=== PATIENT | female | born 1995 | race Caucasian/White ===

== ENCOUNTER 2024-08-10 11:02 | Outpatient (AMB) | payer OTHER, SELFPAY ==
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
[2024-08-10 11:21] VITALS: BP 98/68; PULSE 92; RESP 14; TEMP 37.1; O2SAT 98; BMI 29.5
== END 2024-08-10 12:24 | disposition home or self-care (01) ==
PROVIDERS: Visit Provider Physician Assistant
DX: M13.0 Polyarthritis, unspecified (principal); K58.2 Mixed irritable bowel syndrome; F33.42 Major depressive disorder, recurrent, in full remission; K92.1 Melena; K21.00 Gastro-esophageal reflux disease with esophagitis, without bleeding; M72.2 Plantar fascial fibromatosis; T78.1XXA Other adverse food reactions, not elsewhere classified, initial encounter; R06.81 Apnea, not elsewhere classified; J45.20 Mild intermittent asthma, uncomplicated; J06.9 Acute upper respiratory infection, unspecified; F41.1 Generalized anxiety disorder

== ENCOUNTER → 2024-08-10 11:02 | Outpatient (BNVA) | payer OTHER, SELFPAY | PROVIDERS: Visit Provider Physician Assistant | DX: M13.0 Polyarthritis, unspecified (principal); K58.2 Mixed irritable bowel syndrome; K92.1 Melena; K21.00 Gastro-esophageal reflux disease with esophagitis, without bleeding; M72.2 Plantar fascial fibromatosis; R06.81 Apnea, not elsewhere classified; J45.20 Mild intermittent asthma, uncomplicated; J06.9 Acute upper respiratory infection, unspecified; F41.1 Generalized anxiety disorder; F33.42 Major depressive disorder, recurrent, in full remission | CPT/HCPCS: 96127; 99202 ==

== ENCOUNTER 2024-08-10 12:39 | Outpatient (REF) | payer OTHER, SELFPAY ==
[2024-08-10 14:22] LABS: MANUAL DIFF FLAG NO
[2024-08-10 14:24] LABS: Appearance Urine Cloudy; Color Urine Yellow; Glucose Urine UA Negative (Negative); Leukocyte Esterase Urine Trace (Negative); Nitrite Urine Negative (Negative); Specific Gravity - Urine 1.025 (1.005-1.025); UMIC TRIGGER UACC YES; Urine Blood Negative (Negative); Urine Ketones Trace mg/dL (Negative); Urine Protein Negative (Neg-Trace)
[2024-08-10 14:27] LABS: Basophils Absolute Auto 0.1 X10*3/uL (0.0-0.2); Basophils Percent Auto 0.7 % (0-2); Eosinophils Absolute Auto 0.1 X10*3/uL (0.0-0.4); Eosinophils Percent Auto 0.8 % (0-4); Hematocrit 40.5 % (37.0-47.0); Hemoglobin 13.1 g/dl (12.0-16.0); Imm Gran Abs Auto 0.06 X10*3/uL (0.00-0.03); Imm Gran Pct Auto 0.6 % (0.0-0.4); Lymphocytes Absolute Auto 1.8 X10*3/uL (1.2-4.9); Mean Corpuscular HGB Conc 32.3 g/dl (31.0-35.0); Mean Corpuscular Hemoglobin 27.5 pg (27.0-33.0); Mean Corpuscular Volume 84.9 fL (80.0-98.0); Mean Platelet Volume 10.1 fL (9.4-12.3); Monocytes Absolute Auto 0.7 X10*3/uL (0.1-1.2); Monocytes Percent Auto 6.7 % (2-11); Neutrophils Percent Auto 74.2 % (45-73); Platelet Count 271 X10*3/uL (160-400); Red Blood Count 4.77 X10*6/uL (4.20-5.50); Red Cell Distribution Width 13.1 % (11.0-16.0); White Blood Count 10.7 X10*3/uL (4.8-10.8)
[2024-08-10 14:42] LABS: Bacteria Urine 3+ (None Seen); Calcium Oxalate Crystals Urine Present; Hyaline Casts Urine 0-2 /LPF (0-2); RBC Urine 0-2 /HPF (0-2); WBC Urine 0-5 /HPF (0-5)
[2024-08-10 14:49] LABS: Alanine Aminotransferase 11 U/L (0-31); Albumin Level 4.6 g/dL (3.5-5.0); Alkaline Phosphatase 77 U/L (39-117); Anion Gap 11 (12-20); Aspartate Amino Transferase 16 U/L (5-31); Bilirubin Total 0.4 mg/dL (0.0-1.0); Blood Urea Nitrogen 7 mg/dL (9-16); C Reactive Protein 3.06 mg/dL (< or = 0.50); Calcium 9.8 mg/dL (8.4-10.2); Carbon Dioxide 26 mmol/L (22-29); Chloride 107 mmol/L (96-108); Estimated Glomerular Filt Rate > 60; Glucose Random 94 mg/dL (60-115); Iron 21 mcg/dL (30-160); Magnesium 2.1 mg/dL (1.6-2.6); Percent Iron Saturation 7 % (15-50); Potassium 4.1 mmol/L (3.3-5.1); Sodium 140 mmol/L (135-145); Total Iron Binding Capacity 293 mcg/dL (228-428); Total Protein 7.4 g/dL (6.5-8.0); Unsaturated Iron Binding 272 ug/dL
[2024-08-10 15:02] LABS: Ferritin 38 ng/mL (10-122)
[2024-08-10 15:15] LABS: Erythrocyte Sedimentation Rate 10 MM/HR (0-20)
[2024-08-10 18:19] LABS: Rheumatoid Factor < 13.0 IU/mL (<15.0)
[2024-08-10 18:39] LABS: Vitamin B12 551 pg/mL (200-900)
[2024-08-11 09:04] LABS: Lyme Abs Screen <0.90 index
[2024-08-14 12:58] LABS: VITAMIN D (1,25 OH) D3 75 pg/mL; Vit D (1,25-Dihydroxy) Total 75 pg/mL (18-72); Vitamin D (1,25 OH) D2 <8 pg/mL
[2024-08-15 11:14] LABS: Anti Nuclear Antibody Screen POSITIVE (NEGATIVE); Anti Nuclear Antibody Titer 1:40 titer
== END 2024-08-10 12:40 | disposition home or self-care (01) ==
LOC: HO.WFDLDS 12:39
PROVIDERS: Visit Provider Physician Assistant
DX: M13.0 Polyarthritis, unspecified (principal); K58.2 Mixed irritable bowel syndrome; K92.1 Melena; K21.00 Gastro-esophageal reflux disease with esophagitis, without bleeding; R06.81 Apnea, not elsewhere classified
CPT/HCPCS: 36415; 80053; 81001; 82607; 82652; 82728; 83540; 83735; 85025; 85652; 86038; 86039; 86140; 86431; 86617; 86618

== ENCOUNTER 2024-09-14 11:29 | Outpatient (AMB) | payer OTHER, SELFPAY ==
--- NOTE | 2024-09-14 11:39 | MHC.PC.OV ---
Vital Signs 09/14/24 11:42 Height 5 ft 8.23 in Weight 193 lb 4 oz BMI 29.2 BP 96/54 L Blood Pressure Location Lt brachial Pulse 90 Pulse Source Pulse Oximeter Pulse Oximetry (%) 98 Oxygen Delivery Method Room Air Intake Visit Reasons: 30 min fu Intake Note: Follow up. Never received the Macrobid or inhaler from the pharmacy Nurse Practitioner Home Assessments Required: No Allergies latex Allergy (Unknown, Verified 09/14/24 11:40) Unknown Medication List - Last Reconciled 09/14/24 by Katelyn Philip PA-C aripiprazole 2 mg PO DAILY escitalopram oxalate 10 mg PO DAILY ondansetron HCl 4 mg PO Q8H PRN Tobacco use date assessed: 08/10/24 Dental Screening Dental Screen Date: 08/10/24 HPI 30 min fu HPI Details Patient is a 29-year-old female who presents today for a follow up. SHe is relatively new here. She has a hx of gerd, gastroperisis, ibs, peptic ulcers, food allergies, anxiety, deperession, ocd, ptsd, borderline personality disorder. -she does worried today that she could have a UTI. She has some increased frequency and urgency and dysuria. No fevers or chills. No increased abdominal pain or flank pain. Has chronic pain at baseline but states that this is her baseline. She does have nausea baseline but no vomiting. Feels unchanged. General: Has sleep study booked. She feels good about this. GI: Has a hx of gastroperisis, gerd and IBS and worries that she has crohns. She had upper endoscopy to dx the ulcers and gerd in 2017 but, never a colonoscopy. She has gastric emptying study in 2017. She did not get the GI labs completed yet. She states that she wants testing for celiac disease. She has many food sensitivities. She states anything spicy she gets bloated, n/v. She is also triggered by garlic and onions. She has tried the FODMAP diet and it does not seem to fully relieve it. She thinks she needs to see an freezing room worker. She takes pantoprazole intermittently but no improvement. She sometimes gets blood in the stool and states it lasted for one whole year last year but nothing the last couple months. No mucous in the stools. She states she gets constipation/diarrhea alternating. No weight loss. No dysphagia. No fever or chills. No rashes. No fam hx of colon ca, stomach ca, or IBD. No travel. No antibiotics in the last couple years. No abdominal surgeries. -she was referred to Allergy and immunology for food sensitivities. She was also referred to GI but has not heard yet. Phone number was provided to both of these places today. Rheum: Recent labs did show elevated CRP and positive SERGIO. Has an appointment on 10/05 with Rheumatology. She feels excited about this. She also has an appointment with podiatry for her pain in her feet. She states that she has joint pains all of the time. She states her jaw, back, neck, shoulders, knees and feet bother her daily. She states that her back, neck and shoulders bother her since high school. The jaw is more recent. Seeing a dentist for TMJ. The feet started bothering her on and off for the last 1-2 years. She states that she gets stabbing pain in the arches of her feet. She has been following with a chiropractor and PT. She does not get swelling in the joints. She sometimes has muscular pain as well. No real weakness. At times she will get tingling in her right forearm. She wonders if she has fibromyalgia from her breast implants. Psych: She is on lexapro and abilify. She follows with a psychiatrist in [place]. She is going to testing for adhd and autism. She is following with her school therapist. She has been hospitalized for her mental 2 x for SI. She states her depression is currently very well managed. Generation Manager: UTD, has IUD. Scheduled to see warehouse distribution manager in October. 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 She is currently in school at [employer] for [employer]. 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[employer] Current occupational exposures/hazards: No Cognitive needs: No Hearing needs: No Vision needs: No Questionnaire Thrive Questionnaire Date Thrive assessed: 08/10/24 I am a: Patient What is your living situation today?: I have a place to live, but I am worried about losing it in the future Within the past 12 months, did the food you bought not last and you didn't have the money to get more?: Sometimes True Within the past 12 months, did you worry whether your food would run out before you got money to buy more?: Sometimes True Do you have trouble paying for medicines?: No Do you have trouble getting transportation to medical appointments?: Yes Do you have trouble paying your heating and electricity bill?: No Do you have trouble taking care of your child, family member or friend?: No Do you have trouble with day-to-day activities such as bathing, preparing meals, shopping, managing finances, etc.?: No Are you currently unemployed and looking for a job?: No Are you interested in more education?: No Please select the resources that you would like help with: Transportation THRIVE Score: 4 SHANNAN-7 AMB Questionnaire SHANNAN-7 Date SHANNAN - 7 assessed: 08/10/24 Becoming easily annoyed or irritable: 1 = Several days Source: Developed by Drs. Ochoa Jean, Franchesca Titus, Bryan Whitt and colleagues, with an educational sushil from [employer]. Physical exam (Primary Care) Vital Signs: Last Vital Signs Pulse 90 09/14/24 11:42 BP 96/54 L 09/14/24 11:42 Pulse Ox 98 09/14/24 11:42 Oxygen Delivery Method Room Air 09/14/24 11:42 BMI result Body Mass Index 29.2 Tobacco/Smoking Status: Tobacco use Status Tobacco use date assessed 08/10/24 09/14/24 11:48 Patient Tobacco Use Status Never used Tobacco 09/14/24 11:48 e-Cigarette/Vaping Use Never Used 09/14/24 11:48 Thrive Assessment: Date of Thrive Assessment Date Thrive assessed 08/10/24 09/14/24 11:48 Const Orientation/consciousness: patient oriented x3 HENMT Ears: hearing grossly normal bilaterally Neck Thyroid: Thyroid normal Lymphatic: no lymphadenopathy noted Resp Auscultation: clear to auscultation bilaterally Cardio Rate: regular rate Rhythm: regular rhythm Heart sounds: S1 normal heart sound present and S2 normal heart sound present GI Inspection: Yes normal to inspection Palpation (GI): Soft to palpation and Other GI palpation findings present (nontender, no cva tenderness) Auscultation: normoactive bowel sounds Rectal Exam - Female: deferred Skin General skin exam: no rashes or lesions noted Neuro General: patient oriented x3, gait normal and no focal motor deficits Results Reviewed Results Reviewed: Laboratory Tests 08/10/24 08/10/24 08/10/24 12:14 12:42 12:43 WBC 10.7 RBC 4.77 Hgb 13.1 Hct 40.5 Plt Count 271 ESR 10 Sodium 140 Potassium 4.1 Chloride 107 Carbon Dioxide 26 Anion Gap 11 L BUN 7 L Creatinine 0.79 Estimated GFR > 60 Random Glucose 94 Calcium 9.8 Magnesium 2.1 Iron 21 L TIBC 293 % Saturation 7 L Unsat Iron Binding 272 Ferritin 38 Total Bilirubin 0.4 AST 16 ALT 11 Alkaline Phosphatase 77 C-Reactive Protein 3.06 H Total Protein 7.4 Albumin 4.6 Vitamin B12 551 1,25 Dihydroxy Vit D 75 H 1,25 Dihydroxy Vit D2 <8 Rheumatoid Factor < 13.0 SERGIO Screen POSITIVE A SERGIO Titer 1:40 H SERGIO Pattern A Lyme Screen IgG & IgM <0.90 Coding Level of Care Code Est Pt Level 4 (41912) Complex EM visit Add On G2211 Diagnoses Elevated C-reactive protein R79.82 Food sensitivity with gastrointestinal symptoms T78.1XXA Mild intermittent asthma without complication J45.20 Asthma complication type: uncomplicated UTI (urinary tract infection) N39.0 Assessment & Plan Assessment & Plan (1) Elevated C-reactive protein: Code(s): R79.82 - Elevated C-reactive protein (CRP) Category: Medical Plan: Seeing Rheumatology September. (2) Food sensitivity with gastrointestinal symptoms: Code(s): T78.1XXA - Other adverse food reactions, not elsewhere classified, initial encounter Category: Medical Plan: We did discuss an elimination diet. Advised to complete labs that have been ordered. Phone number provided to GI and Allergy and immunology. (3) Asthma, mild intermittent: Code(s): J45.20 - Mild intermittent asthma, uncomplicated Category: Medical Qualifiers: Asthma complication type: uncomplicated Qualified Code(s): J45.20 - Mild intermittent asthma, uncomplicated Plan: Currently well-controlled. We will refill albuterol as she does not have anymore at home. (4) UTI (urinary tract infection): Code(s): N39.0 - Urinary tract infection, site not specified Plan: UA and culture ordered today. She we will start Macrobid and we will adjust if we have to. Medications: New nitrofurantoin monohyd/m-cryst 100 mg (Macrobid) must administer with a meal/food 100 mg PO Q12H 7 days 14 caps 0RF albuterol sulfate 90 mcg/actuation 2 puffs inhalation Q6H PRN 8.5 grams 3RF shortness of breath or wheezing Refilled ondansetron HCl 4 mg PO Q8H PRN 30 tabs 3RF nausea and vomiting
[2024-09-14 11:42] VITALS: BP 96/54; PULSE 90; O2SAT 98; BMI 29.2
== END 2024-09-14 12:12 | disposition home or self-care (01) ==
LOC: HO.HMCFM 11:29
PROVIDERS: PCP Physician Assistant; Visit Provider Physician Assistant
DX: R79.82 Elevated C-reactive protein (CRP) (principal); T78.1XXA Other adverse food reactions, not elsewhere classified, initial encounter; J45.20 Mild intermittent asthma, uncomplicated; N39.0 Urinary tract infection, site not specified

== ENCOUNTER → 2024-09-14 11:29 | Outpatient (BNVA) | payer OTHER, SELFPAY | PROVIDERS: PCP Physician Assistant; Visit Provider Physician Assistant | DX: R79.82 Elevated C-reactive protein (CRP) (principal); J45.20 Mild intermittent asthma, uncomplicated; N39.0 Urinary tract infection, site not specified; T78.1XXA Other adverse food reactions, not elsewhere classified, initial encounter | CPT/HCPCS: 99212 ==

== ENCOUNTER 2024-09-14 13:31 | Outpatient (REF) | payer OTHER, SELFPAY ==
[2024-09-14 18:12] LABS: Appearance Urine Turbid; Color Urine Yellow; Glucose Urine UA Negative (Negative); Leukocyte Esterase Urine Negative (Negative); Nitrite Urine Negative (Negative); Specific Gravity - Urine 1.025 (1.005-1.025); Urine Blood Negative (Negative); Urine Ketones Negative (Negative); Urine Protein Negative (Neg-Trace)
[2024-09-15 08:03] LABS: Immunoglobulin A 168 mg/dL (47-310)
[2024-09-16 06:53] LABS: Transglutaminase Ab IgG <1.0 U/mL
[2024-09-19 23:38] LABS: Endomysial IgA Antibody Negative (Negative)
== END 2024-09-14 13:32 | disposition home or self-care (01) ==
LOC: HO.WFDLDS 13:31
PROVIDERS: Visit Provider Physician Assistant
DX: K58.2 Mixed irritable bowel syndrome (principal); K92.1 Melena; Z13.220 Encounter for screening for lipoid disorders
CPT/HCPCS: 36415; 81003; 82784; 86231; 86364

== ENCOUNTER 2024-10-05 15:09 | Outpatient (AMB) | payer OTHER, SELFPAY ==
--- NOTE | 2024-10-05 15:12 | MHC.OFFVIS ---
Vital Signs 10/05/24 15:21 Height 5 ft 8.23 in Weight 193 lb 5.526 oz BMI 29.2 BP 115/60 Blood Pressure Location Lt brachial Position Sitting Pulse 92 Pulse Source Pulse Oximeter Pulse Oximetry (%) 97 Oxygen Delivery Method Room Air Intake Visit Reasons: Polyarthritis/elev crp/CM APT Intake Note: Patient presents for Polyarthritis. I feel jaw pain, both shoulder pain, lower back pain, both hips pain, both legs hamstring pain and both under feet pain. I been feeling this pain for 10 years. I use Tylenol and it doesn't help. Allergies latex Allergy (Unknown, Verified 10/05/24 15:16) Unknown Medication List - Last Reconciled 10/05/24 by Joslyn Whittaker MD albuterol sulfate 90 mcg/actuation 2 puffs inhalation Q6H PRN aripiprazole 2 mg PO DAILY escitalopram oxalate 10 mg PO DAILY ondansetron HCl 4 mg PO Q8H PRN HPI Comments Details: This is a 29-year-old female who presents for evaluation of positive SERGIO and elevated CRP in the context of diffuse pain. Patient states that she has had diffuse pain for more than 10 years. She states that she has pain all over including her neck, back, hands, ankles, feet. She states that she has significant fatigue and pain with light activity. She denies any history of DVT/PE. She denies any unintentional weight loss. She states that she has lost some weight in the context of her gastroparesis diagnosis. She denies any unexplained fevers. She states that she has been diagnosed with rosacea in the past. It was treated with topical creams. She denies any mouth ulcers. Denies any blood or frothy urine. Patient has never attempted . She is sexually active and has an IUD in place. She is unaware of any family history of an autoimmune rheumatic disease [facility] Medical History Rosacea Gastroparesis Surgical History H/O breast surgery Family History Mother History of arthritis Father History of arthritis Asthma History of alcoholism Social History Housing: House Alcohol intake: current Comment: OCC Patient Tobacco Use Status: Never used Tobacco e-Cigarette/Vaping Use: Never Used Second Hand Smoke Exposure: No Substance Use Type: Marijuana service: No Current occupational status: employed Current occupation: [employer] Current occupational exposures/hazards: No Cognitive needs: No Hearing needs: No Vision needs: No Female Reproductive History Menstrual Total pregnancies: 0 Review of Systems Const Reports fatigue, Reports lethargy and Reports weakness ENT Reports neck pain Musc Reports back pain, Reports myalgias, Reports arthralgias, Reports neck pain and Reports stiffness Neuro Reports weakness Psych Reports abnormal sleep pattern, Reports anxiety and Reports depression Endo Reports fatigue Physical Exam Vital Signs: Last Vital Signs Pulse 92 10/05/24 15:21 BP 115/60 10/05/24 15:21 Pulse Ox 97 10/05/24 15:21 Oxygen Delivery Method Room Air 10/05/24 15:21 BMI result Body Mass Index 29.2 Const General: cooperative, healthy appearing and comfortable Nutritional Appearance: average body habitus Limitations: no limitations HEENT Head: Yes normocephalic and Yes atraumatic Mouth: moist mucous membranes Resp Effort & Inspection: normal respiratory effort and able to speak in complete sentences Auscultation: clear to auscultation bilaterally Cardio Rate: regular rate Rhythm: regular rhythm Skin Other: Acne on back, upper chest Extrem Other: No active synovitis Multiple fibromyalgia tender points Normal nailfold capillaroscopy Assessment & Plan Assessment & Plan (1) Positive SERGIO (antinuclear antibody): Code(s): R76.8 - Other specified abnormal immunological findings in serum Category: Medical (2) Fibromyalgia, primary: Code(s): M79.7 - Fibromyalgia Category: Medical Plan: This is a 29-year-old female who presents for evaluation of a positive SERGIO 1-40 and elevated CRP in the context of diffuse pain for 10 years. Upon evaluation I do not see any signs suggestive of an autoimmune rheumatic disease. Discussed with patient that a positive SERGIO can be seen in about 20% of the population. In her case the titer 1-40 is considered negative in the Rheumatology world. Her CRP was elevated when she did her blood work. At that time patient was having flu-like symptoms. Her symptoms are rather consistent with fibromyalgia Discussed management of fibromyalgia with patient. Is a noninflammatory, non-autoimmune central afferent processing disorder leading to a diffuse pain syndrome. Patient follows up regularly with a psychologist and a psychiatrist. Try to follow sleep hygiene practices. Sleep study was ordered by her PCP. Patient would benefit from increased physical activity, either through formal physical therapy or by joining a gym. Advised patient that she should start activity slowly and increase as tolerated. Consider low-impact exercises such as walking, swimming, aqua therapy stretching, yoga. Discussed symptoms and signs that are suggestive of an autoimmune rheumatic disease. Advised patient to return as needed Follow-up with PCP Plan I spent 30 minutes reviewing patient's chart, evaluating patient, counseling patient and documenting in the chart Coding Level of Care Code New Pt Level 3 (05144) Diagnoses Positive SERGIO (antinuclear antibody) R76.8 Fibromyalgia, primary M79.7
[2024-10-05 15:21] VITALS: BP 115/60; PULSE 92; O2SAT 97; BMI 29.2
== END 2024-10-05 16:07 | disposition home or self-care (01) ==
PROVIDERS: PCP Physician Assistant; Visit Provider Student in an Organized Health Care Education/Training Program
DX: R76.8 Other specified abnormal immunological findings in serum (principal); M79.7 Fibromyalgia
CPT/HCPCS: 99203

== ENCOUNTER → 2024-10-05 15:09 | Outpatient (BNVA) | payer OTHER, SELFPAY | PROVIDERS: PCP Physician Assistant; Visit Provider Student in an Organized Health Care Education/Training Program | DX: M79.7 Fibromyalgia (principal); R76.8 Other specified abnormal immunological findings in serum | CPT/HCPCS: 99202 ==

== ENCOUNTER 2024-10-18 12:25 | Outpatient (REF) | payer OTHER, SELFPAY ==
[2024-10-26 01:33] LABS: Calprotectin, Fecal 40 mcg/g
== END 2024-10-18 12:26 | disposition home or self-care (01) ==
LOC: HO.LNP 12:25
PROVIDERS: Visit Provider Physician Assistant
DX: M13.0 Polyarthritis, unspecified (principal); K58.2 Mixed irritable bowel syndrome; K92.1 Melena; K21.00 Gastro-esophageal reflux disease with esophagitis, without bleeding
CPT/HCPCS: 83993; 87338

== ENCOUNTER 2024-12-27 13:07 | Outpatient (AMB) | payer OTHER, SELFPAY ==
--- NOTE | 2024-12-27 13:15 | MHC.OFFVIS ---
Vital Signs 12/27/24 13:16 Height 5 ft 8.5 in Weight 198 lb BMI 29.7 BP 120/70 Intake Visit Reasons: Annual Cellulose Insulation Helper Required: No Cellulose Insulation Helper Services: Cellulose Insulation Helper Present Information Interpreted: clinical only Medical Record Clerk: Medical Record Clerk Present Allergies latex Allergy (Unknown, Verified 12/27/24 13:17) Unknown Medication List - Last Reconciled 12/27/24 by Jenny Marin CNM albuterol sulfate 90 mcg/actuation 2 puffs inhalation Q6H PRN aripiprazole 2 mg PO DAILY escitalopram oxalate 10 mg PO DAILY levonorgestrel (Mirena) intrauterine ondansetron HCl 4 mg PO Q8H PRN Is last menstrual period known: No (IUD) HPI HPI Annual: Details: 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 She is 29 year old nulliparous patient. She has a Mirena IU S that was put in for control and also because she had 7 day long very heavy and crampy periods for years and now she does not get periods and she is much happier. She also had breast surgery she had breast reduction on 1 side and removal of painful masses that were non cancers in the other side and an implant placed to make her breasts even. She has recently been diagnosed with fibromyalgia and was told she should only exercise a couple of times a week not do anything strenuous. She has gastric paresis which has caused her to throw up most days which is much better control these days. 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 She does have access to a car. She is sexually active she is not worried about STIs but she has recently had screening done with blood work. Her periods used to be regular lasting 7 days before placement of the Mirena she thinks she might have gained about 20 lb since then. She thinks it was inserted about 3 years ago. She does not plan on childbearing and she wonders if she can simply use the Mirena through menopause. 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, [employer] Current occupational exposures/hazards: No Cognitive needs: No Hearing needs: No Vision needs: No Female Reproductive History Menstrual Age of Menarche: 14 Duration of menses: 6-7 days control method: progestin IUCD Total pregnancies: 0 Date of last pap smear: 12/14/20 (negative, per patient.) History of abnormal pap smear: No Physical Exam Vital Signs: Last Vital Signs BP 120/70 12/27/24 13:16 BMI result Body Mass Index 29.7 Const General: healthy appearing, comfortable, no acute distress, well developed and alert Nutritional Appearance: average body habitus Orientation/consciousness: patient oriented x3 Limitations: no limitations HEENT Head: Yes normocephalic Neck Neck: Yes normal visual inspection Chest Chest palpation & inspection: normal inspection of the chest Breast/axilla inspection: normal inspection of the breasts and normal inspection of the axillae Breast/axilla palpation: normal palpation of the breasts and normal palpation of the axillae Resp Effort & Inspection: normal respiratory effort GI Inspection: Yes normal to inspection, No Abdominal wall edema and No distended Palpation (GI): Soft to palpation and nontender Other: External exam within normal limits. Vagina is pink and moist scant clear to white discharge cervix nulliparous high up in vagina Mirena string not initially visible but was able to be teased out to the length of an eyelash with use of Cytobrush cervix long close thick mobile nontender uterus small midposition mobile nontender not enlarged adnexa nontender not enlarged fair tone with Kegel. General: Yes bladder normal to palpation External Female Exam: normal external appearance and normal appearance of the urethra Speculum Exam - Vagina: normal appearance of the vagina, normal palpation and normal vaginal discharge Speculum Exam - Cervix: normal appearance of the cervix, normal palpation and nontender Bimanual exam- vagina & uterus: normal bimanual exam, normal palpation, uterine size normal, bladder normal to palpation, consistency normal, normal palpation, uterine mobility normal, uterine shape normal, No Cervical tenderness present, non-tender and no cervical motion tenderness Bimanual Exam- Adnexa, other: normal adnexae, no masses, normal and No adnexal tenderness Neuro General: patient oriented x3 Assessment & Plan Assessment & Plan (1) Fibromyalgia, primary: Code(s): M79.7 - Fibromyalgia Category: Medical (2) Well woman exam with routine gynecological exam: Code(s): Z01.419 - Encounter for gynecological examination (general) (routine) without abnormal findings Category: Medical (3) Cervical cancer screening: Code(s): Z12.4 - Encounter for screening for malignant neoplasm of cervix Category: Medical (4) control counseling: Code(s): Z30.09 - Encounter for other general counseling and advice on contraception Category: Medical (5) Presence of 52 mg levonorgestrel-releasing intrauterine device (IUD): Comment: She believes it was inserted 3 years ago for contraception and to relieve long heavy menses. Code(s): Z97.5 - Presence of (intrauterine) contraceptive device Category: Social Hx (6) Encounter for screening examination for sexually transmitted disease: Code(s): Z11.3 - Encounter for screening for infections with a predominantly sexual mode of transmission Category: Medical Plan -----Discussed in this visit the following: healthy balanced diet, regular and consistent exercise, getting recommended health screens, doing the best she can for her particular health concerns, kegel exercises, pap smear screening and followup recommendations, mammography screening and SBE, normal changes in cycles in her life stage--- .Reviewed how the Mirena works and its affect on menstrual cycles and menses and the other common changes that women sometimes notice on mood weight another subtle cyclic changes. Reviewed that 1 of the reasons we insert the Mirena at the beginning of the menses is because of the typical physiologic changes that happen with menses that allow for the cervix to be slightly softened and open a very tiny bit which allow for more easy insertion of the Mirena. Additionally when it is inserted at the beginning of the menstrual cycle the endometrial lining has not built up very much yet as it is just shedding its lining, and therefore future periods will be expected to be facilities mechanical design engineer and there will be less of a problematic side effect of irregular bleeding which might occur her if we inserted it at a random time. Discussed problems to watch for including any severe pain, fever, feeling of expulsion. Also discussed what to do if those occur.(call here or seek urgent care) Reviewed why we leave the strings about 3-4 centimetres long, so that they will curl around the cervix otherwise the sharper tip of the strings could be palpable and be uncomfortable. Additionally when they are cut too short it is not possible to remove the IUD in the future easily. Also discussed the initial recommendations to use the Mirena IUD for contraception for up to 5 years. Some recent studies are indicating that it can be used for longer and there are current recommendations saying it can be left for longer period of time when used for contraception, up to 8 years and it can be used for 5 years when it is being used to help control abnormal bleeding. However, many women, whose periods went away for the 1st few years of having the Mirena, have reported that around 4-1/2-5 years into its use, they have noticed return of full menses, and return of ovulatory signs and symptoms midcycle. This varies from women to woman. In addition women who have had it to help control bleeding, have had amenorrhea for very many years and sometimes have opted to leave it in longer if they are still not bleeding, when they are not concerned about contraception. I recommend the she pay attention to how the effects are acting on her own body, and cycles, and always take care to be aware of this. And if she is using it for contraception, and the consequences of conceiving would be great for her, she would be gill to pay attention to this, and not depend on it, if she has a return to fertility. And if she desires replacement, she should return for replacement at the appropriate time. The string is visible today so that is a relatively reassuring sign that it is in the right place. When it comes time for replacement we would want to be able to see the string and if we could not we would verify with ultrasound and proceed from there. Discussed that since it is a long-term reversible method it is quite acceptable to continuously use it through menopause. Discussed also that if she chose to have it removed now that she has gained weight she may find herself with a different bleeding pattern rather than a regular menstrual pattern. it is not possible to say until the time.. I also encouraged her to consider movement exercise on a more regular basis rather than restricting movement as that many many people with fibromyalgia find movement helpful she is interested in water aerobics and I shared with her where it is available at the [facility]. She also likes Alejandro. RTC 1 year. Timeframe/Date Comment rtc 1 yr Orders: Orders CT NG by PCR Today N89.8 - Other specified noninflammatory disorders of vagina, Z20.2 - Contact with and (suspected) exposure to infections with a predominantly sexual mode of transmission Pap Smear Today Z00.00 - Encounter for general adult medical examination without abnormal findings Bacterial Vaginosis Panel Today N89.8 - Other specified noninflammatory disorders of vagina Coding Level of Care Code New Pt Prev Care 18-39yr([id number] Diagnoses Fibromyalgia, primary M79.7 Well woman exam with routine gynecological exam Z01.419 Cervical cancer screening Z12.4 control counseling Z30.09 Presence of 52 mg levonorgestrel-releasing intrauterine device (IUD) Z97.5 Encounter for screening examination for sexually transmitted disease Z11.3
[2024-12-27 13:16] VITALS: BP 120/70; BMI 29.7
--- OUTSIDE RECORDS SUMMARY | 2024-12-27 14:29 | XMS_ITS | Clinical Summary ---
Author Organization [facility] Address [address] [place] [address] Care Team Providers Care Camp Nurse Name Role Phone Zara Herrera MD Primary Care Provider + Allergies No known active allergies Medications albuterol sulfate (VENTOLIN HFA) 108 (90 Base) MCG/ACT inhalation aerosol A ctive Social History Tobacco Use Types Packs/Day Years Used Date Smoking Tobacco: Never Smokeless Tobacco: Never Alcohol Use Standard Drinks/Week Comments Not Currently 0 (1 standard drink = 0.6 oz pur e alcohol) Comments No Sex and Gender Information Value Date Recorded Sex Assigned at Not on file Legal Sex Female 6:22 PM EDT Gender Identity Not on file Sexual Orientation Not on file Last Filed Vital Signs Vital Sign Reading Time Taken Comments Blood Pressure 114/69 05/31/2020 6:24 PM EDT Pulse 89 05/31/2020 6:24 PM EDT Temperature 37.1 ??C (98.7 ??F) 05/31/2020 6:24 PM ED T Respiratory Rate 18 05/31/2020 6:24 PM EDT Oxygen Saturation 96% 05/31/2020 6:24 PM EDT Inhaled Oxygen Concentration - - Weight 63.5 kg (140 lb) 05/31/2020 6:24 PM EDT Height 175.3 cm (5' 9 ) 05/31/2020 6:24 PM EDT Body Mass Index 20.67 05/31/2020 6:24 PM EDT Plan of Treatment Not on file Insurance [facility] Care Teams Camp Nurse Relationship Specialty Start Date End Date Zara Herrera MD [address] [place] [address] PCP - General Family Medicine 05/31/20
--- OUTSIDE RECORDS SUMMARY | 2024-12-27 14:29 | XMS_ITS | Referral Summary ---
Author Organization [facility] Address [address] [facility] Main Number: [phone] (07/06) [place] [address] Care Team Providers Care Doorperson Name Role Phone Zara Herrera MD Unavailable [phone] Allergies No known active allergies Medications Medication Sig Dispensed Refills Start Date End Date Status albuteroL 90 mcg/puff Inhalation HFA inhaler Inhale 2 puffs every 6 (six) hours as needed. Active escitalopram (LEXAPRO) 20 mg tablet Take 20 mg by mouth daily. 05/27/2022 Active Social History Tobacco Use Types Packs/Day Years Used Date Smoking Tobacco: Never Smokeless Tobacco: Never Tobacco Cessation:Counseling Given: Not Answered Sex and Gender Information Value Date Recorded Sex Assigned at Female 03/29/2023 10:33 AM EDT Gender Identity Not on file Sexual Orientation Not on file Last Filed Vital Signs Vital Sign Reading Time Taken Comments Blood Pressure 122/76 04/02/2023 9:07 AM EDT Pulse 77 04/02/2023 9:07 AM EDT Temperature - - Respiratory Rate - - Oxygen Saturation 100% 04/02/2023 9:07 AM EDT Inhaled Oxygen Concentration - - Weight 83.9 kg (185 lb) 06/04/2023 7:03 PM EDT Height - - Body Mass Index - - Plan of Treatment Not on file Care Teams Doorperson Relationship Specialty Start Date End Date Zara Herrera MD [address] [place] [address] PCP - Insurance 08/11/21
--- OUTSIDE RECORDS SUMMARY | 2024-12-27 14:29 | XMS_ITS | Clinical Summary ---
Author Organization [facility] Address [address] [place] [address] Care Team Providers Care Sewing Teacher Name Role Phone Zara Herrera MD Primary Care Provider + Immunizations Name Administration Dates Next Due Hep A, Unspecified 04/01/2012 Hep B, Unspecified 1996,1996, 996 MMR Live vaccine 01/14/2000,06/01/1997 Meningococcal, Unspecified 04/27/2008 Poliovirus vaccine IPV (IPOL) 01/14/2000 Tdap Vaccine (BOOSTRIX/ADACEL) 04/27/2008 Typhoid, Unspecified 04/01/2012 Varicella Vaccine (VARIVAX) 12/20/2008, 8 Social History Tobacco Use Types Packs/Day Years Used Date Smoking Tobacco: Never Comments Unknown Sex and Gender Information Value Date Recorded Sex Assigned at Female 01/30/2020 1:18 PM EDT Legal Sex Female 8:18 PM EDT Gender Identity Female 01/30/2020 1:18 PM EDT Sexual Orientation Not on file Last Filed Vital Signs Vital Sign Reading Time Taken Comments Blood Pressure 120/72 04/01/2012 1:43 PM EDT Pulse 68 04/01/2012 1:43 PM EDT Temperature 36.6 ??C (97.9 ??F) 04/01/2012 1:43 PM ED T Respiratory Rate 18 04/01/2012 1:43 PM EDT Oxygen Saturation - - Inhaled Oxygen Concentration - - Weight 59.5 kg (131 lb 4.5 oz) 04/01/2012 1:43 P M EDT Height - - Body Mass Index - - Plan of Treatment Not on file Insurance [facility] Care Teams Sewing Teacher Relationship Specialty Start Date End Date Zara Herrera MD [address] [place] [id number] PCP - General Family Practice 01/30/20
--- OUTSIDE RECORDS SUMMARY | 2024-12-27 14:29 | XMS_ITS | Clinical Summary ---
Author Organization [facility] Address [address] [facility], [address] [place] [address] Care Team Providers Care Knowledge Architect Name Role Phone Zara Herrera Primary Care Provider [phone] Allergies No known active allergies Medications LORazepam (ATIVAN) 0.5 mg tablet Take 1 tablet (0.5 mg total) by mouth once as needed for anxiety. Active escitalopram (LEXAPRO) 20 mg tablet Take 1 tablet (20 mg total) by mouth daily. Active albuterol HFA (PROVENTIL HFA;VENTOLIN HFA) 90 mcg/actuation inhaler Inhale 2 puffs every 6 (six) hours as needed for wheezing. Active oxyCODONE (Roxicodone) 5 mg immediate release tablet Take 1 tablet (5 mg total) by mouth every 6 (six) hours as needed for severe pain (7-10) for up to 10 doses. 10 tablet Active Additional Information Patient not taking.Reported on 04/27/2023 Active Problems Problem Noted Date Diagnosed Date Congenital breast deformity Social History Tobacco Use Types Packs/Day Years Used Date Smoking Tobacco: Never Passive Smoke Exposure: Never Smokeless Tobacco: Never Tobacco Cessation:Counseling Given: No Alcohol Use Standard Drinks/Week Comments Never 0 (1 standard drink = 0.6 oz pur e alcohol) Comments No Sex and Gender Information Value Date Recorded Sex Assigned at Not on file Legal Sex Female 4:40 PM EDT Gender Identity Not on file Sexual Orientation Not on file Last Filed Vital Signs Vital Sign Reading Time Taken Comments Blood Pressure 95/67 04/27/2023 10:40 AM EDT Pulse 75 04/27/2023 10:40 AM EDT Temperature 36.5 ??C (97.7 ??F) 04/27/2023 10:40 AM E DT Respiratory Rate 16 03/08/2023 11:00 AM EDT Oxygen Saturation 99% 04/27/2023 10:40 AM EDT Inhaled Oxygen Concentration - - Weight 85.5 kg (188 lb 9.6 oz) 04/27/2023 10:40 AM EDT Height 175.3 cm (5' 9 ) 04/27/2023 10:40 AM EDT Body Mass Index 27.85 04/27/2023 10:40 AM EDT Plan of Treatment Health Maintenance Due Date Last Done Comments HPV Vaccines (3 - 3-dose series) 10/19/2013 07/27/2013, 06/26/2012 Hepatitis C Screening 2014 Periodic Health Exam 2014 Tetanus Diphtheria and Pertussis Vaccines (TD and TDaP) (1 - Tdap) 2015 Cervical Cancer Screening 2017 Influenza (Seasonal) 06/15/2024 11/19/2016 CoVid-19 Vaccine ( season) 2024 05/13/2021, 04/22/2021 HIB Vaccines Completed 01/24/1997, 03/1996, 1996, Additional history exists Meningococcal Vaccine Completed 06/22/2014, 008 Pneumococcal Vaccine: Pediatrics (0 to 5 Years) and At-Risk Patients (6 to 64 Years) Aged Out No longer eligible based on patient's age to complete this topic Medical Devices Implanted Type Area Transit Worker Device Identifier Shelf Expiration Date Model / Serial / Lot Impl Mammary 200 Cc Low Profil - [id number] - [id number] Implanted:Qty: 1 on 03/08/2023 by Ro Baird MD at [facility] Implant Left: Breast ALLERGAN 01/12/2027 SSL-200 / [id number] / SSL-200 Insurance [facility] MEDICAID [facility] [place] [address] Care Teams Knowledge Architect Relationship Specialty Start Date End Date Zara Herrera [address] [place] [address] [place] [address] PCP - General Family Medicine 07/24/22
--- OUTSIDE RECORDS SUMMARY | 2024-12-27 14:29 | XMS_ITS | Clinical Summary ---
Author Organization [facility] Address [address] [facility] Main Number: [phone] (07/06) [place] [address] Care Team Providers Care Passenger Interline Clerk Name Role Phone Zara Herrera MD Unavailable [phone] Allergies No known active allergies Medications Medication [...] Mass Index - - Plan of Treatment Health Maintenance Due Date Last Done Comments Dental Oral Exam 1996 Dental Prophylaxis 1996 Dental X-Ray: Bitewings 1996 Dental X-Ray: Full Mouth 1996 HIV Lifetime Screening 1996 Hepatitis B sAg Lifetime Screening 1996 Hepatitis C Antibody Lifetim e Screening 1996 Periodontal Maintenance 1996 THRIVE SCREENING 1996 Oral Health Screen 1996 HEIP Disability Screen 2001 BEHAVIORAL HEALTH SCREEN 2008 Psych Substance Use Screen 2008 Relationship Safety Screening 2011 DTAP/TDAP VACCINE (1 - Tdap) 2015 Cervical Cancer Screening 2017 Colposcopy 2017 PAP SMEAR 2017 Pap + HPV 2017 COVID-19 Vaccine (3 - 2023-2 5 season) 2024 05/13/2021, 04/22/2021 INFLUENZA VACCINE (#1) 2024 , 11/19/2016, 09/13/2015 Zoster Vaccine (1 of 2) 2046 HPV VACCINES Aged Out No longer eligi ble based on patient's age to complete this topic IPV VACCINES Aged Out No longer eligi ble based on patient's age to complete this topic Pneumonia Vaccine 0-64 Aged Out No lo nger eligible based on patient's age to complete this topic ROTAVIRUS VACCINES Aged Out No longer eligible based on patient's age to complete this topic Care Teams Passenger Interline Clerk Relationship Specialty Start Date End Date Zara Herrera MD [address] [place] [address] PCP - Insurance 08/11/21
--- OUTSIDE RECORDS SUMMARY | 2024-12-27 14:29 | XMS_ITS | Patient Health Record ---
Author Organization [facility] [address] [place] [address] [address] Address [address] [place] [id number] Care Team Providers Care Block Stacker Name Role Phone Zara Herrera MD Primary Care Provider Phylicia vailable ALLERGIES No Known Allergies REASON FOR REFERRAL No Information MEDICATIONS Medication SIG (Take, Route, Frequency, Duration) Notes Start Date End Date Status .04/13 1.5-30 MG-MCG TAKE 1 TABLET BY MOUTH EVERY DAY Oral for 28 Active Benztropine Mesylate 0.5 MG TAKE 1/2 TAB LET BY MOUTH ONCE A DAY Oral for 30 Active Latuda 40 MG TAKE ONE TABLET BY M OUTH EVERY EVENING WITH MEALS Oral for 30 Active Triamcinolone Acetonide 0.1 % APPLY TO PERIANAL AREA THREE TIMES PER DAY External for 30 Active Scopolamine 1 MG/3DAYS APPLY 1 PATCH AND CHANGE EVERY 72 HOURS Transdermal for 12 Active Pantoprazole Sodium 20 MG TAKE 1 TABLET BY MOUTH EVERY DAY Oral for 30 Active Prazosin HCl 1 MG TAKE 1 CAPSULE BY MO UTH EVERYDAY AT BEDTIME Oral for 30 Active Sertraline HCl 50 MG TAKE 1 TABLET BY MO UTH EVERY DAY Oral for 30 Active PROBLEMS Problem Type ICD Code Onset Dates Problem Status W/U Status Risk SNOMED Code Notes Problem Seizure disorder (G40.909) Active confirmed Seizure disorder (513340666) Problem Episode of shaking (R25.1) Active confirmed [id number] PLAN OF TREATMENT No Information Insurance Providers Payer Name Payer Address Payer Phone Subscriber Number Group Number Insured Name Patient Relationship to Insured Coverage Start Date Coverage End Date [facility] [address] [address] [place] [address] [id number] Adriana Berad Self - patient is the insured MEDICAL (GENERAL) HISTORY Medical History History ICD Code Anxiety Bipolar Depression Panic Attacks Sleep Apnea r/t panic attacks Nightmares GERD Constipation Hemorrhoids Shaking/tremors occur with anxiety episo juvenal PTSD Social Anxiety
--- OUTSIDE RECORDS SUMMARY | 2024-12-27 14:29 | XMS_ITS | Encounter Summary ---
Author Organization [facility] Address [address] [facility] [address] [facility] [place], [address] [place] [address] Care Team Providers Care Cheese Weigher Name Role Phone Zara Herrera Primary Care Provider Encounter Details Date Type Department Care Team (Late st Contact Info) Description 03/08/2023 Procedure Pass [facility] [address] [place] [phone] Social History Tobacco Use Types Packs/Day Years Used Date Smoking Tobacco: Never Passive Smoke Exposure: Never Smokeless Tobacco: Never Alcohol Use Standard Drinks/Week Comments Never 0 (1 standard drink = 0.6 oz pur e alcohol) Comments No Sex and Gender Information Value Date Recorded Sex Assigned at Not on file Legal Sex Female 4:40 PM EDT Gender Identity Not on file Sexual Orientation Not on file COVID-19 Exposure Response Date Recorded In the last 10 days, have yo u been in contact with someone who was confirmed or suspected to have Coronavirus/COVID-19? No / Unsure 03/08/2023 6:40 AM EDT documented as of this encounter Plan of Treatment Not on file documented as of this encounter Visit Diagnoses Not on filedocumented in this encounter Care Teams Cheese Weigher Relationship Specialty Start Date End Date Zara Herrera [address] [place] [address] PCP - General Family Medicine 07/24/22 documented as of this encounter
== END 2024-12-27 14:07 | disposition home or self-care (01) ==
PROVIDERS: PCP Physician Assistant; Visit Provider Advanced Practice Midwife
DX: Z01.419 Encounter for gynecological examination (general) (routine) without abnormal findings (principal); M79.7 Fibromyalgia; Z30.09 Encounter for other general counseling and advice on contraception; Z97.5 Presence of (intrauterine) contraceptive device
CPT/HCPCS: 99385; 99459

== ENCOUNTER 2024-12-27 13:07 | Outpatient (REF) | payer OTHER, SELFPAY ==
--- OUTSIDE RECORDS SUMMARY | 2024-12-27 15:19 | XMS_ITS | Clinical Summary ---
Author Organization [facility] Address [address] [facility] Main Number: [phone] (07/06) [place] [address] Care Team Providers Care Optical Laboratory Manager Name Role Phone Zara Herrera MD Unavailable [phone] Allergies No known active allergies Medications Medication [...] age to complete this topic Care Teams Optical Laboratory Manager Relationship Specialty Start Date End Date Zara Herrera MD [address] [place] [address] PCP - Insurance 08/11/21
--- OUTSIDE RECORDS SUMMARY | 2024-12-27 15:19 | XMS_ITS | Clinical Summary ---
Author Organization [facility] Address [address] [place] [address] Care Team Providers Care Seismic Prospecting Supervisor Name Role Phone Zara Herrera MD Primary [...] Plan of Treatment Not on file Insurance [facility] Care Teams Seismic Prospecting Supervisor Relationship Specialty Start Date End Date Zraa Herrera MD [address] [place] [address] PCP - General Family Practice 01/30/20
--- OUTSIDE RECORDS SUMMARY | 2024-12-27 15:19 | XMS_ITS | Clinical Summary ---
Author Organization [facility] Address [address] [place] [address] Care Team Providers Care Outbound Sales Advisor Name Role Phone Zara Herrera MD Primary [...] Plan of Treatment Not on file Insurance [facility] Care Teams Outbound Sales Advisor Relationship Specialty Start Date End Date Zara Herrera MD [address] [place] [address] PCP - General Family Medicine 05/31/20
--- OUTSIDE RECORDS SUMMARY | 2024-12-27 15:19 | XMS_ITS | Referral Summary ---
Author Organization [facility] Address 1 [facility] Main Number: [phone] (07/06) [place] [address] Care Team Providers Care Mainframe Systems Engineer Name Role Phone Zara Herrera MD Unavailable [phone] Allergies No known active allergies Medications Medication [...] of Treatment Not on file Care Teams Mainframe Systems Engineer Relationship Specialty Start Date End Date Zara Herrera MD [address] [place] [address] PCP - Insurance 08/11/21
--- OUTSIDE RECORDS SUMMARY | 2024-12-27 15:21 | XMS_ITS | Encounter Summary ---
Author Organization [facility] Address [address] [facility], [address] [place] [address] Care Team Providers Care Agriscience Instructor Name Role Phone Zara Herrera Primary Care Provider Encounter Details Date Type Department Care Team (Late st Contact Info) Description 03/08/2023 Procedure Pass [facility] [address] [place] [address] [phone] Social History Tobacco Use [...] on filedocumented in this encounter Care Teams Agriscience Instructor Relationship Specialty Start Date End Date Zara Herrera [address] [place] [address] PCP - General Family Medicine 07/24/22 documented as of this encounter
[2024-12-28 07:21] LABS: CT PCR NOT DETECTED (Not Detect.); NG PCR NOT DETECTED (Not Detect.)
[2024-12-28 13:32] LABS: Bacterial Vaginosis PCR NEGATIVE (Negative); Candida Group PCR DETECTED (Not Detect); Candida glab krusei PCR NOT DETECTED (Not Detect); Trichomonas vaginalis PCR NOT DETECTED (Not Detect)
== END 2024-12-27 13:08 | disposition home or self-care (01) ==
LOC: HO.LAB 13:07
PROVIDERS: PCP Physician Assistant; Visit Provider Advanced Practice Midwife
DX: Z00.00 Encounter for general adult medical examination without abnormal findings (principal); N89.8 Other specified noninflammatory disorders of vagina; Z20.2 Contact with and (suspected) exposure to infections with a predominantly sexual mode of transmission; M79.7 Fibromyalgia; Z97.5 Presence of (intrauterine) contraceptive device; Z11.3 Encounter for screening for infections with a predominantly sexual mode of transmission
CPT/HCPCS: 81515; 87491; 87591; 99385; 99459

== ENCOUNTER 2024-12-27 13:58 | Outpatient (REF) | payer OTHER, SELFPAY | END 2024-12-27 13:59 | disposition home or self-care (01) | LOC: HO.LNP 13:58 | PROVIDERS: Visit Provider Advanced Practice Midwife | DX: Z00.00 Encounter for general adult medical examination without abnormal findings (principal) | CPT/HCPCS: 88175 ==

== ENCOUNTER 2025-01-03 13:47 | Outpatient (REF) | payer OTHER, SELFPAY ==
--- OUTSIDE RECORDS SUMMARY | 2025-01-03 16:49 | XMS_ITS | Clinical Summary ---
Author Organization [facility] Address [address] [place] [address] Care Team Providers Care Copper Flotation Operator Name Role Phone Zara Herrera MD Primary [...] Plan of Treatment Not on file Insurance [facility] Care Teams Copper Flotation Operator Relationship Specialty Start Date End Date Zara Herrera MD [address] [place] [address] PCP - General Family Medicine 05/31/20
--- OUTSIDE RECORDS SUMMARY | 2025-01-03 16:49 | XMS_ITS | Clinical Summary ---
Author Organization [facility] Address [address] [place] [address] Care Team Providers Care Mainstreaming Facilitator Name Role Phone Zara Herrera MD Primary [...] Plan of Treatment Not on file Insurance [facility] Care Teams Mainstreaming Facilitator Relationship Specialty Start Date End Date Zara Herrera MD [address] [place] [address] PCP - General Family Practice 01/30/20
--- OUTSIDE RECORDS SUMMARY | 2025-01-03 16:49 | XMS_ITS | Encounter Summary ---
Author Organization [facility] Address [address] [place] [address] Care Team Providers Care Cans Vacuum Tester Name Role Phone Zara Herrera Primary Care Provider [phone] Encounter Details Date Type Department Care Team (Late st Contact Info) Description 03/08/2023 Procedure Pass [facility] [address] [place] [address] [phone] Social History Tobacco Use [...] on filedocumented in this encounter Care Teams Cans Vacuum Tester Relationship Specialty Start Date End Date Zara Herrera [address] [place] [address] PCP - General Family Medicine 07/24/22 documented as of this encounter
--- OUTSIDE RECORDS SUMMARY | 2025-01-03 16:49 | XMS_ITS | Clinical Summary ---
Author Organization [facility] Address 1 [facility] Main Number: [phone] (07/06) [place] [address] Care Team Providers Care Texture Artist Name Role Phone Zara Herrera MD Unavailable Allergies No known active allergies Medications Medication [...] age to complete this topic Care Teams Texture Artist Relationship Specialty Start Date End Date Zara Herrera MD [address] [place] [address] PCP - Insurance 08/11/21
--- OUTSIDE RECORDS SUMMARY | 2025-01-03 16:49 | XMS_ITS | Clinical Summary ---
Author Organization [facility] Address [address] [place] [address] Care Team Providers Care Junior Accountant Bookkeeper Name Role Phone Zara Herrera Primary Care Provider [phone] Allergies No known active allergies Medications LORazepam [...] this topic Medical Devices Implanted Type Area Supervisor Graphite Device Identifier Shelf Expiration Date Model / Serial / Lot Impl Mammary 200 Cc Low Profil - [id number] - [id number] Implanted:Qty: 1 on 03/08/2023 by Ro Baird MD at [facility] Implant Left: Breast ALLERGAN 01/12/2027 SSL-200 / [id number] / SSL-200 Insurance [facility] MEDICAID [facility] REFERRAL Care Teams Junior Accountant Bookkeeper Relationship Specialty Start Date End Date Zara Herrera [address] [place] [address] [place] [address] PCP - General Family Medicine 07/24/22
[2025-01-04 12:46] LABS: H Pylori Breath Test Negative (Negative)
== END 2025-01-03 13:48 | disposition home or self-care (01) ==
LOC: HO.LNP 13:47
PROVIDERS: PCP Physician Assistant; Visit Provider Nurse Practitioner Family
DX: K21.9 Gastro-esophageal reflux disease without esophagitis (principal)
CPT/HCPCS: 83013

== ENCOUNTER 2025-01-03 13:47 | Outpatient (AMB) | payer OTHER, SELFPAY ==
--- NOTE | 2025-01-03 13:51 | A.OFFVIS_ITS ---
Vital Signs 01/03/25 13:52 Height 5 ft 8 in Weight 198 lb BMI 30.1 BP 116/61 Blood Pressure Location Lt brachial Position Sitting Pulse 104 H Pulse Oximetry (%) 99 Oxygen Delivery Method Room Air Intake Visit Reasons: GERD and melena Intake Note: Patient new consult for GERD and Melena Patient cc: nauseas with acid reflex every morning, abdominal pain with bloating, acid reflex with vomit and burning sensation, and between diarrhea and constipation with bloody hemorrhoids on and off. She is asking if her med for depression is causing GERD to her and also dizziness and fatigue. Manager Office Required: No Accompanied by: Self / Same As Patient Allergies latex Allergy (Unknown, Verified 01/03/25 13:51) Unknown HPI HPI GERD and melena: Details: 30-year-old female with past medical history of and anxiety, depression, asthma, GERD, plantar fasciitis, external hemorrhoids, is here today for initial consultation. Patient reports several GI symptoms that have been escalating involving her in the past few months. Constipation, bleeding hemorrhoids. Patient reports also occasional loose stools. Epigastric pain and acid reflux significant, sometimes no matter what she eats. Patient also reports abdominal bloating postprandially. Patient reports occasional dyspepsia without dysphagia or odynophagia. Denies melena, unintentional weight loss or ribbon like stools. PCP her ordered back in October fecal calprotectin that was normal, negative H pylori testing. Normal ESR, however patient had elevated CRP and positive SERGIO and was seen roof truss detailer. autoimmune disorders excluded, diagnosed with fibromyalgia. [facility] Medical History (Updated 01/30/25 @ 12:03 by Sophia De La Fuente [facility]) GERD with esophagitis External hemorrhoid Rosacea Gastroparesis Surgical History H/O breast surgery Family History Mother History of arthritis Father History of arthritis Asthma History of alcoholism Social History Housing: House Alcohol intake: current Comment: OCC Patient Tobacco Use Status: Never used Tobacco e-Cigarette/Vaping Use: Never Used Second Hand Smoke Exposure: No Substance Use Type: Marijuana service: No Current occupational status: employed 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, [employer] Current occupational exposures/hazards: No Cognitive needs: No Hearing needs: No Vision needs: No Female Reproductive History Menstrual Age of Menarche: 14 Review of Systems Const Denies weight gain and Denies weight loss ENT Reports no additional complaints, Denies dysphagia and Denies odynophagia Card Reports no additional complaints Resp Reports no additional complaints GI Reports abdominal pain (epigastric), Denies belching, Denies melena, Denies bloating, Reports hematochezia (occasional), Denies change in bowel habits, Reports constipation, Denies dysphagia, Reports excessive flatus, Reports dyspepsia, Reports heartburn, Denies diarrhea, Reports loose stools, Reports nausea, Denies odynophagia and Reports vomiting (occasional) Reports no additional complaints Musc Reports no additional complaints Neuro Reports no additional complaints Psych Reports no additional complaints Endo Reports no additional complaints Physical Exam Vital Signs: Last Vital Signs Pulse 104 H 01/03/25 13:52 BP 116/61 01/03/25 13:52 Pulse Ox 99 01/03/25 13:52 Oxygen Delivery Method Room Air 01/03/25 13:52 BMI result Body Mass Index 30.1 Const General: healthy appearing, no acute distress and well developed Nutritional Appearance: obese Orientation/consciousness: patient oriented x3 Resp Effort & Inspection: normal respiratory effort, able to speak in complete sente nces, no tracheal deviation and symmetric chest movement Auscultation: clear to auscultation bilaterally Cardio Rate: regular rate GI Inspection: Yes normal to inspection, No distended and Yes obesity Palpation (GI): Soft to palpation, not firm, nontender and No hepatosplenomegaly present Auscultation: normal bowel sounds General: Yes no CVA tenderness Back/Spine/Pelvis Back: no CVA tenderness Skin General skin exam: elasticity normal, turgor normal and dry skin Neuro General: patient oriented x3 Psych Appearance: grossly normal Mental Status: mental status grossly normal Assessment & Plan Assessment & Plan (1) Postprandial epigastric pain: Code(s): R10.13 - Epigastric pain (2) Postprandial abdominal bloating: Code(s): R14.0 - Abdominal distension (gaseous) (3) GERD (gastroesophageal reflux disease): Code(s): K21.9 - Gastro-esophageal reflux disease without esophagitis Qualifiers: Esophagitis presence: esophagitis presence not specified Qualified Code(s): K21.9 - Gastro-esophageal reflux disease without esophagitis (4) Constipation: Code(s): K59.00 - Constipation, unspecified Qualifiers: Constipation type: slow transit constipation Qualified Code(s): K59.01 - Slow transit constipation (5) Diarrhea: Code(s): R19.7 - Diarrhea, unspecified Qualifiers: Diarrhea type: functional diarrhea Qualified Code(s): K59.1 - Functional diarrhea (6) Hemorrhoid: Code(s): K64.9 - Unspecified hemorrhoids Qualifiers: Hemorrhoid type: unspecified Qualified Code(s): K64.9 - Unspecified hemorrhoids Plan Will send patient to general surgery for evaluation of her hemorrhoids. Will check H pylori, gastric emptying study to rule out gastroparesis, lipase, vitamin-D, transglutaminase. Patient will start on Nexium daily. Avoid dietary triggers latex snacking. Staying upright for minimal 3 hours after meals discussed with patient. Patient was encouraged to take fiber supplements to help her bulk her stool. Patient will take her Senokot daily to help her move her bowels. Increase fluid intake and activity to promote better bowel motility. Patient will follow-up in the office in 3 months. She will call if she will have worsening symptoms. She is agreeable to current plan of care and verbalizes understanding of instructions. She was given the opportunity to ask questions and all questions answered. Thank you for allowing me to participate in her care Orders: Orders Transglutaminase IgA 01/03/25 R10.9 - Unspecified abdominal pain Vitamin D 25-OH (D2 and D3) 01/03/25 E55.9 - Vitamin D deficiency, unspecified Lipase 01/03/25 R10.9 - Unspecified abdominal pain TSH reflex Free T4 01/03/25 K59.00 - Constipation, unspecified H Pylori Breath Test 01/03/25 K21.9 - Gastro-esophageal reflux disease without esophagitis NM gastric emptying study 01/03/25 R68.81 - Early satiety Referrals General Surgery Referral K64.4 - Residual hemorrhoidal skin tags Medications: New esomeprazole magnesium (Nexium) 20 mg PO DAILY 30 caps 4RF sennosides (Natural Senna Laxative) 17.2 mg (2 x 8.6 mg) PO BEDTIME 60 tabs 3RF constipation K59.00 - Constipation, unspecified Coding Level of Care Code New Pt Level 4 (35311) Diagnoses Postprandial epigastric pain R10.13 Postprandial abdominal bloating R14.0 Gastroesophageal reflux disease, unspecified whether esophagitis present K21.9 Esophagitis presence: esophagitis presence not specified Slow transit constipation K59.01 Constipation type: slow transit constipation Functional diarrhea K59.1 Diarrhea type: functional diarrhea Hemorrhoids, unspecified hemorrhoid type K64.9 Hemorrhoid type: unspecified Time Spent (min) 50 Comment 35 minutes spent with patient and additional 15 minutes spent reviewing her records
[2025-01-03 13:52] VITALS: BP 116/61; PULSE 104; O2SAT 99; BMI 30.1
--- OUTSIDE RECORDS SUMMARY | 2025-01-03 14:09 | XMS_ITS | Patient Health Record ---
Author Organization [facility] [address] [place] [address] [address] Address [address] [place] [address] Care Team Providers Care Restorer Paper And Prints Name Role Phone Zara Herrera MD Primary [...] Seizure disorder (G40.909) Active confirmed Seizure disorder ([id number]) Problem Episode of shaking (R25.1) Active confirmed [id number] PLAN OF TREATMENT No Information Insurance Providers Payer Name Payer Address Payer Phone Subscriber Number Group Number Insured Name Patient Relationship to Insured Coverage Start Date Coverage End Date [facility] [address] [address] [place] [address] [id number] Adriana Beard Self - patient is the insured MEDICAL (GENERAL) HISTORY Medical History History ICD Code Anxiety Bipolar Depression Panic Attacks Sleep Apnea r/t panic attacks Nightmares GERD Constipation Hemorrhoids Shaking/tremors occur with anxiety episo juvenal PTSD Social Anxiety
--- OUTSIDE RECORDS SUMMARY | 2025-01-03 14:09 | XMS_ITS | Clinical Summary ---
Author Organization [facility] Address [address] [place] [address] Care Team Providers Care Writing Tutor Name Role Phone Zara Herrera Primary Care Provider [phone] Allergies No known active allergies Medications LORazepam [...] this topic Medical Devices Implanted Type Area Stereotyper Apprentice Device Identifier Shelf Expiration Date Model / Serial / Lot Impl Mammary 200 Cc Low Profil - [id number] - [id number] Implanted:Qty: 1 on 03/08/2023 by Ro Baird MD at [facility] Implant Left: Breast ALLERGAN 01/12/2027 SSL-200 / [id number] / SSL-200 Insurance [facility] MEDICAID [facility] REF[facility] Care Teams Writing Tutor Relationship Specialty Start Date End Date Zara Herrera [address] [place] [address] [place] [address] PCP - General Family Medicine 07/24/22
--- OUTSIDE RECORDS SUMMARY | 2025-01-03 14:09 | XMS_ITS | Clinical Summary ---
Author Organization [facility] Address 1 [facility] Main Number: [phone] (07/06) [place] [address] Care Team Providers Care Urology Physician Assistant Name Role Phone Zara Herrera MD Unavailable [phone] Allergies No known active allergies Medications Medication [...] age to complete this topic Care Teams Urology Physician Assistant Relationship Specialty Start Date End Date Zara Herrera MD [address] [place] [address] PCP - Insurance 08/11/21
--- OUTSIDE RECORDS SUMMARY | 2025-01-03 14:09 | XMS_ITS | Clinical Summary ---
Author Organization [facility] Address [address] [place] [address] Care Team Providers Care Wire Mesh Knitter Name Role Phone Zara Herrera MD Primary [...] Plan of Treatment Not on file Insurance [facility] Care Teams Wire Mesh Knitter Relationship Specialty Start Date End Date Zara Herrera MD [address] [place] [address] PCP - General Family Practice 01/30/20
--- OUTSIDE RECORDS SUMMARY | 2025-01-03 14:09 | XMS_ITS | Clinical Summary ---
Author Organization [facility] Address [address] [place] [address] Care Team Providers Care Tube Pusher Name Role Phone Zara Herrera MD Primary [...] Plan of Treatment Not on file Insurance [facility] A[facility] Care Teams Tube Pusher Relationship Specialty Start Date End Date Zara Herrera MD [address] [place] [address] PCP - General Family Medicine 05/31/20
--- OUTSIDE RECORDS SUMMARY | 2025-01-03 14:09 | XMS_ITS | Referral Summary ---
Author Organization [facility] Address 1 [facility] Main Number: [phone] (07/06) [place] [address] Care Team Providers Care Extension Work Instructor Name Role Phone Zara Herrera MD Unavailable [phone] Allergies No known active allergies Medications Medication [...] of Treatment Not on file Care Teams Extension Work Instructor Relationship Specialty Start Date End Date Zara Herrera MD [address] [place] [address] PCP - Insurance 08/11/21
--- OUTSIDE RECORDS SUMMARY | 2025-01-03 14:10 | XMS_ITS | Encounter Summary ---
Author Organization [facility] Address [address] [place] [address] Care Team Providers Care Chief Growth Officer Name Role Phone Zara Herrera Primary Care Provider [phone] Encounter Details Date Type Department Care Team (Late st Contact Info) Description 03/08/2023 Procedure Pass [facility] [address] [place] [address] [phone] Social History Tobacco Use [...] on filedocumented in this encounter Care Teams Chief Growth Officer Relationship Specialty Start Date End Date Zara Herrera [address] [place] [address] PCP - General Family Medicine 07/24/22 documented as of this encounter
== END 2025-01-03 14:56 | disposition home or self-care (01) ==
PROVIDERS: PCP Physician Assistant; Visit Provider Nurse Practitioner Family
DX: R10.13 Epigastric pain (principal); R14.0 Abdominal distension (gaseous); K21.9 Gastro-esophageal reflux disease without esophagitis; K59.01 Slow transit constipation; K59.1 Functional diarrhea; K64.9 Unspecified hemorrhoids
CPT/HCPCS: 99204

== ENCOUNTER 2025-01-03 14:48 | Outpatient (REF) | payer OTHER, SELFPAY ==
--- OUTSIDE RECORDS SUMMARY | 2025-01-03 14:53 | XMS_ITS | Clinical Summary ---
Author Organization [facility] Address [address] [place] [address] Care Team Providers Care Policy Change Clerk Name Role Phone Zara Herrera MD Primary [...] Plan of Treatment Not on file Insurance [facility] Care Teams Policy Change Clerk Relationship Specialty Start Date End Date Zara Herrera MD [address] [place] [address] PCP - General Family Practice 01/30/20
--- OUTSIDE RECORDS SUMMARY | 2025-01-03 14:53 | XMS_ITS | Clinical Summary ---
Author Organization [facility] Address 1 [facility] Main Number: [phone] (07/06) [place] [address] Care Team Providers Care Guest Service Manager Name Role Phone Zara Herrera MD Unavailable [phone] Allergies No known active allergies Medications Medication [...] age to complete this topic Care Teams Guest Service Manager Relationship Specialty Start Date End Date Zara Herrera MD [address] [place] [address] PCP - Insurance 08/11/21
--- OUTSIDE RECORDS SUMMARY | 2025-01-03 14:53 | XMS_ITS | Clinical Summary ---
Author Organization [facility] Address [address] [place] [address] Care Team Providers Care Assembler Wire Mesh Gate Name Role Phone Zara Herrera Primary Care Provider [phone] Allergies No known active allergies Medications LORazepam [...] this topic Medical Devices Implanted Type Area Fork Truck Driver Device Identifier Shelf Expiration Date Model / Serial / Lot Impl Mammary 200 Cc Low Profil - [id number] - [id number] Implanted:Qty: 1 on 03/08/2023 by Ro Baird MD at [facility] Implant Left: Breast ALLERGAN 01/12/2027 SSL-200 / [id number] / SSL-200 Insurance [facility] MEDICAID [facility] REFERRAL Care Teams Assembler Wire Mesh Gate Relationship Specialty Start Date End Date Zara Herrera [address] [place] [address] [place] [address] PCP - General Family Medicine 07/24/22
--- OUTSIDE RECORDS SUMMARY | 2025-01-03 14:53 | XMS_ITS | Referral Summary ---
Author Organization [facility] r Address 1 [facility] Main Number: [phone] (07/06) [place] [address] Care Team Providers Care Medical Case Manager Name Role Phone Zara Herrera MD Unavailable [phone] Allergies No known active allergies Medications Medication [...] of Treatment Not on file Care Teams Medical Case Manager Relationship Specialty Start Date End Date Zara Herrera MD [address] [place] [address] PCP - Insurance 08/11/21
--- OUTSIDE RECORDS SUMMARY | 2025-01-03 14:53 | XMS_ITS | Clinical Summary ---
Author Organization [facility] Address [address] [place] [address] Care Team Providers Care Lab Support Service Tech Name Role Phone Zara Herrera MD Primary [...] Plan of Treatment Not on file Insurance [facility] Care Teams Lab Support Service Tech Relationship Specialty Start Date End Date Zara Herrera MD [address] [place] [address] PCP - General Family Medicine 05/31/20
--- OUTSIDE RECORDS SUMMARY | 2025-01-03 14:53 | XMS_ITS | Encounter Summary ---
Author Organization [facility] Address [address] [place] [address] Care Team Providers Care Credit Risk Analytics Manager Name Role Phone Zara Herrera Primary Care Provider [phone] Encounter Details Date Type Department Care Team (Late st Contact Info) Description 03/08/2023 Procedure Pass [facility] [address] [place] [address] [phone] Social History Tobacco Use [...] on filedocumented in this encounter Care Teams Credit Risk Analytics Manager Relationship Specialty Start Date End Date Zara Herrera [address] [place] [address] PCP - General Family Medicine 07/24/22 documented as of this encounter
[2025-01-03 16:06] LABS: Lipase 25 U/L (8-78)
[2025-01-03 16:26] LABS: TSH reflex Free T4 0.96 uIU/mL (0.32-4.0)
[2025-01-05 20:59] LABS: Transglutaminase IgA <1.0 U/mL
[2025-01-07 12:18] LABS: Vitamin D 25-OH, D2 <4 ng/mL; Vitamin D 25-OH, D3 20 ng/mL; Vitamin D 25-OH, Total 20 ng/mL (30-100)
== END 2025-01-03 14:49 | disposition home or self-care (01) ==
LOC: HO.LAB 14:48
PROVIDERS: PCP Physician Assistant; Visit Provider Nurse Practitioner Family
DX: R10.9 Unspecified abdominal pain (principal); E55.9 Vitamin D deficiency, unspecified; K59.00 Constipation, unspecified
CPT/HCPCS: 36415; 82306; 83690; 84443; 86364; 99202

== ENCOUNTER → 2025-02-28 07:48 | Outpatient (REF) | payer OTHER, SELFPAY ==
--- NOTE | ~2025-02-28 | NM_ITS ---
EXAMINATION: PR RADIONUCLIDE SOLID FOOD GASTRIC EMPTYING 4-HOUR STUDY CLINICAL INFORMATION: R68.81 - Early satiety COMPARISON: None TECHNIQUE: A standard meal consisting of 4 oz of Egg Beaters brand tagged with 0.98 mCi Tc-99m Sulfur Colloid, 6 oz water and 1 slice of toast with jelly was administered orally to the patient. Images were obtained using a dual head gamma camera in the anterior and posterior projections over of the stomach immediately post ingestion and at hourly intervals up to 4 hours post ingestion. The anterior and posterior counts at each time interval were averaged using the geometric mean and expressed as percentage of the immediate post ingestion counts. FINDINGS: There is visualization of activity in the stomach immediately post ingestion. As the study progresses, there is clearance of activity from the stomach and visualization of progressively increasing small bowel activity. By the end of the study, there is almost no retention noted in the stomach. Retention in the stomach at each time interval was: 1 hour 71% (normal 37%-90%) 2 hours 38% (normal 30%-60%) 3 hours 20% 4 hours 5% (normal 0%-10%) NM/PR gastric emptying study IMPRESSION: Normal 4-hour solid food gastric emptying study. For solid meal, rapid gastric emptying is less than 30% at 60 minutes. Delayed gastric emptying criteria is more than 60% remaining at 120 minutes or more than 10% at 240 minutes. The 4-hour value is the best discriminator of a normal or abnormal result). Gastric emptying study grading per JNMT Consensus Recommendations in 2008 (https://tech.snmjournals.org/content/36/1/44) Grade 1 (mild retention): 11-20% at 4h Grade 2 (moderate retention): 21-35% at 4h Grade 3 (severe retention): 36-50% at 4h Grade 4 (very severe retention): >50% retention at 4h Electronically signed by: Ochoa Serrano MD 02/28/2025 01:46 PM EDT
--- OUTSIDE RECORDS SUMMARY | 2025-02-28 07:51 | XMS_ITS | Patient Health Record ---
Author Organization [facility] [address] [place] [address] [address] Address [address] [place] [address] Care Team Providers Care Casket Assembler Name Role Phone Zara Herrera MD Primary [...] Seizure disorder (G40.909) Active confirmed Seizure disorder ([id number]) Problem Episode of shaking (R25.1) Active confirmed [id number] PLAN OF TREATMENT No Information Insurance Providers Payer Name Payer Address Payer Phone Subscriber Number Group Number Insured Name Patient Relationship to Insured Coverage Start Date Coverage End Date [facility] [address] [address] [place] [address] [id number] Adriana Beard Self - patient is the insured MEDICAL (GENERAL) HISTORY Medical History History ICD Code Anxiety Bipolar Depression Panic Attacks Sleep Apnea r/t panic attacks Nightmares GERD Constipation Hemorrhoids Shaking/tremors occur with anxiety episo juvenal PTSD Social Anxiety
--- OUTSIDE RECORDS SUMMARY | 2025-02-28 07:51 | XMS_ITS | Clinical Summary ---
Author Organization [facility] Address [address] [place] [address] Care Team Providers Care Linux Server Administrator Name Role Phone Zara Herrera MD Primary [...] Plan of Treatment Not on file Insurance [facility] A[facility] Care Teams Linux Server Administrator Relationship Specialty Start Date End Date Zara Herrera MD [address] [place] [address] PCP - General Family Medicine 05/31/20
--- OUTSIDE RECORDS SUMMARY | 2025-02-28 07:51 | XMS_ITS | Referral Summary ---
Author Organization [facility] r Address [address] [place] [address] Phone Care Team Providers Care Mrb Engineer Name Role Phone Zara Herrera MD Unavailable Allergies No known active allergies Medications albuteroL 90 mcg/puff Inhalation HFA inhaler Inhale 2 puffs every 6 (six) hours as needed. Active escitalopram (LEXAPRO) 20 mg tablet Take 20 mg by mouth daily. 05/27/2022 Active Social History Tobacco Use Types Packs/Day Years Used Date Smoking Tobacco: Never Smokeless Tobacco: Never Tobacco Cessation:Counseling Given: Not Answered Comments Unknown Sex and Gender Information Value Date Recorded Sex Assigned at Female 03/29/2023 10:33 AM EDT Legal Sex Female 7:32 PM EDT Gender Identity Not on file [...] of Treatment Not on file Care Teams Mrb Engineer Relationship Specialty Start Date End Date Zara Herrera MD [address] [place] [phone] PCP - Insurance 08/11/21
--- OUTSIDE RECORDS SUMMARY | 2025-02-28 07:51 | XMS_ITS | Clinical Summary ---
Author Organization [facility] r Address [address] [place] [address] Phone Care Team Providers Care Tilting Head Band Sawyer Name Role Phone Zara Herrera MD Unavailable [phone] Allergies No known active allergies Medications albuteroL [...] 2024 05/13/2021, 04/22/2021 INFLUENZA VACCINE (#1) 2024 7, 11/19/2016, 09/13/2015 Zoster Vaccine (1 of 2) 2046 HPV VACCINES Aged Out No longer eligi ble based on patient's age to complete this topic IPV VACCINES Aged Out No longer eligi ble based on patient's age to complete this topic MENINGOCOCCAL B Aged Out No longer el igible based on patient's age to complete this topic Pneumonia Vaccine 0-49 Years Aged Out No longer eligible based on patient's age to complete this topic ROTAVIRUS VACCINES Aged Out No longer eligible based on patient's age to complete this topic Care Teams Tilting Head Band Sawyer Relationship Specialty Start Date End Date Zara Herrera MD [address] [place] [address] [phone] PCP - Insurance 08/11/21
--- OUTSIDE RECORDS SUMMARY | 2025-02-28 07:51 | XMS_ITS | Clinical Summary ---
Author Organization [facility] Address [address] [place] [id number] Care Team Providers Care Improvement Leader Name Role Phone Zara Herrera MD Primary [...] Plan of Treatment Not on file Insurance [facility] Care Teams Improvement Leader Relationship Specialty Start Date End Date Zara Herrera MD [address] [place] [phone] PCP - General Family Practice 01/30/20
--- OUTSIDE RECORDS SUMMARY | 2025-02-28 07:51 | XMS_ITS | Encounter Summary ---
Author Organization [facility] Address [address] [place] [address] Care Team Providers Care Concrete Vibrator Operator Name Role Phone Zara Herrera Primary Care Provider [phone] Encounter Details Date Type Department Care Team (Late st Contact Info) Description 03/08/2023 Procedure [facility] [address] [place] [address] [phone] Social History Tobacco Use [...] on filedocumented in this encounter Care Teams Concrete Vibrator Operator Relationship Specialty Start Date End Date Zara Herrera [address] [place] [phone] PCP - General Family Medicine 07/24/22 documented as of this encounter
--- OUTSIDE RECORDS SUMMARY | 2025-02-28 07:51 | XMS_ITS | Clinical Summary ---
Author Organization [facility] Address [address] [place] [address] Care Team Providers Care Grinder Set Up Operator External Name Role Phone Zara Herrera Primary Care Provider [phone] Allergies No known active allergies Medications LORazepam [...] Completed 01/24/1997, 03/1996, 1996, Additional history exists MMR Vaccines Completed 01/14/2000, 06/01/1997 Meningococcal Vaccine Completed 06/22/2014, 008 Pneumococcal Vaccine: Pediatrics (0 to 5 Years) and At-Risk Patients (6 to 64 Years) Aged Out No longer eligible based on patient's age to complete this topic Medical Devices Implanted Type Area Unix Manager Device Identifier Shelf Expiration Date Model / Serial / Lot Impl Mammary 200 Cc Low Profil - [id number] - [id number] Implanted:Qty: 1 on 03/08/2023 by Ro Baird MD at [facility] Implant Left: Breast ALLERGAN 01/12/2027 SSL-200 / [id number] / SSL-200 Insurance [facility] [employer] MEDICAID [facility] Care Teams Grinder Set Up Operator External Relationship Specialty Start Date End Date Zara Herrera [facility] [place] [address] PCP - General Family Medicine 07/24/22
== END ==
LOC: HO.NUCMED 07:48
PROVIDERS: PCP Physician Assistant; Visit Provider Nurse Practitioner Family
DX: R68.81 Early satiety (principal)
CPT/HCPCS: 78264; A9541

== ENCOUNTER → 2025-02-28 07:50 | Outpatient (BNV) | payer OTHER, SELFPAY | PROVIDERS: PCP Physician Assistant; Visit Provider Radiology Diagnostic Radiology | DX: R68.81 Early satiety (principal) | CPT/HCPCS: 78264 ==